=== PATIENT | female | born 1965 | race Caucasian/White ===

== ENCOUNTER → 2017-03-12 | Outpatient (CLI) | payer OTHER | LOC: MRI 07:30 | DX: M47.896 Other spondylosis, lumbar region (principal); R20.0 Anesthesia of skin ==

== ENCOUNTER → 2018-05-04 | Outpatient (CLI) | payer OTHER | LOC: CAT 13:55 | DX: Z13.6 Encounter for screening for cardiovascular disorders (principal); E78.00 Pure hypercholesterolemia, unspecified ==

== ENCOUNTER → 2019-12-05 | Outpatient (CLI) | payer OTHER | LOC: LAB 11:20 | PROVIDERS: ATTEND Family Medicine | DX: Z03.818 Encounter for observation for suspected exposure to other biological agents ruled out (principal) ==

== ENCOUNTER → 2021-01-31 | Outpatient (CLI) | payer OTHER | LOC: CAT 15:23 | PROVIDERS: ATTEND Obstetrics & Gynecology | DX: Z13.6 Encounter for screening for cardiovascular disorders (principal) ==